=== PATIENT | female | born 1950 | race Caucasian/White ===

== ENCOUNTER 2022-11-07 18:20 | Inpatient (IN) | payer MEDICARE, MEDICAID ==
[2022-11-07] MEDS ORDERED: Sodium Chloride 0.9% 1,000 ML IV ONE (19:05)
[2022-11-07 19:32] LABS: ANION GAP 12.8 mmol/L (5-15); CHLORIDE,CL 99 mmol/L (98-107); SODIUM,NA 135 mmol/L (136-145)
[2022-11-07 19:36] LABS: ESTIMATED GFR 88 mL/min (>=60)
[2022-11-07] MEDS ORDERED: Iopamidol 755 Mg/ML 75 ML Bottle IVPUSH ONE (20:11)
[2022-11-07] MEDS ORDERED: Sodium Chloride 0.9% 50 ML IV SCH (20:15)
[2022-11-07] MEDS ORDERED: Alum Hydrox/Mag Hydrox/Simeth 30 ML, Lidocaine 2% 15 ML PO ONE ×2 (21:02)
[2022-11-07] MEDS ORDERED: Aspirin 81 MG Tab.Chew PO ONE (22:06)
[2022-11-07] MEDS ORDERED: LORazepam 0.5 MG Tab PO ONE (22:14)
[2022-11-07] MEDS ORDERED: Heparin Sodium 5,000 Units/ML Vial IVPUSH ONE (22:17)
[2022-11-07] MEDS ORDERED: Heparin Sodium/D5W 250 ML IV SCH (22:30)
[2022-11-07] MEDS ORDERED: Lidocaine 2% 100 MG/5 ML Syringe IVPUSH PRN (23:48)
[2022-11-07] MEDS ORDERED: EPINEPHrine 1:10,000 1 MG/10 ML Syringe IVPUSH PRN (23:48)
[2022-11-07] MEDS ORDERED: Atropine 0.1 MG/ML 10 ML Syringe IVPUSH PRN (23:48)
[2022-11-07] MEDS ORDERED: Nitroglycerin 0.4 MG Tab.SL SL PRN (23:48)
[2022-11-08] MEDS: LORazepam 2 MG/ML SDV IVPUSH PRN ×2 (01:02→13:59)
[2022-11-08] MEDS ORDERED: Sodium Chloride 0.9% 1,000 ML IV SCH (09:15)
[2022-11-08] MEDS ORDERED: Aspirin 81 MG Tab.Chew PO ONE (09:15)
[2022-11-08 10:10] VITALS: PULSE 69
[2022-11-08] MEDS ORDERED: Heparin Sodium 5,000 Units/ML Vial IVPUSH ONE (12:55)
[2022-11-08 15:20] VITALS: BP 106/79
== END 2022-11-08 14:15 | DRG 281 ==
LOC: KA.ED 18:20 → KA.MS 22:43
PROVIDERS: ADMIT Internal Medicine; ATTEND Internal Medicine
DX: I21.4 Non-ST elevation (NSTEMI) myocardial infarction (principal); Z68.1 Body mass index [BMI] 19.9 or less, adult; Z88.1 Allergy status to other antibiotic agents; Z88.8 Allergy status to other drugs, medicaments and biological substances; Z79.890 Hormone replacement therapy; Z79.899 Other long term (current) drug therapy; K21.9 Gastro-esophageal reflux disease without esophagitis; R63.6 Underweight
CPT/HCPCS: 36415; 74177; 80053; 83690; 84484; 85025; 85730; 93005; 93010; 96361; 96374; 99223; 99285-25; A9270-GY; J1644; J2060; J7030; Q9967

== ENCOUNTER 2024-03-28 16:59 | Emergency (ER) | payer MEDICARE, MEDICAID ==
[2024-03-28 17:21] LABS: BASOPHILS ABSOLUTE AUTO 0.04 10^3/uL (0.00-0.10); BASOPHILS PERCENT AUTO 0.6 % (0.0-1.0); EOSINOPHILS ABSOLUTE AUTO 0.17 10^3/uL (0.10-0.30); EOSINOPHILS PERCENT AUTO 2.4 % (1.0-3.0); HEMATOCRIT 36.9 % (37.0-47.0); HEMOGLOBIN 12.4 g/dL (12.0-16.0); IMMATURE GRAN ABSOLUTE AUTO 0.01 10^3/uL (0.00-0.50); IMMATURE GRAN PERCENT AUTO 0.1 % (0.0-5.0); LYMPHOCYTES ABSOLUTE AUTO 1.93 10^3/uL (1.00-4.00); LYMPHOCYTES PERCENT AUTO 27.4 % (20.0-40.0); MEAN CORPUSCULAR HEMOGLOBIN 32.5 pg (27.0-31.0); MEAN CORPUSCULAR HGB CONC 33.6 g/dL (32.0-36.0); MEAN CORPUSCULAR VOLUME 96.9 fL (82.0-92.0); MEAN PLATELET VOLUME 10.3 fL (7.4-10.4); MONOCYTES ABSOLUTE AUTO 0.44 10^3/uL (0.10-0.80); MONOCYTES PERCENT AUTO 6.2 % (2.0-8.0); NEUTROPHILS ABSOLUTE AUTO 4.46 10^3/uL (2.50-7.00); NEUTROPHILS PERCENT AUTO 63.3 % (50.0-70.0); PLATELET COUNT,PLT 212 10^3/uL (150-400); RED BLOOD CELL COUNT 3.81 10^6/uL (3.80-5.50); RED CELL DISTRIBUTION WIDTH 12.1 % (11.5-14.5); WHITE BLOOD CELL COUNT,WBC 7.05 10^3/uL (5.00-10.00)
[2024-03-28 17:39] LABS: ALANINE AMINOTRANSFERASE,ALT 19 U/L (14-63); ALBUMIN 3.28 g/dL (3.40-5.00); ALKALINE PHOSPHATASE 97 U/L (46-116); ANION GAP 13.2 mmol/L (5-15); ASPARTATE AMNIOTRANSFERASE,AST 21 U/L (15-37); BILIRUBIN TOTAL 0.2 mg/dL (0.2-1.0); BLOOD UREA NITROGEN,BUN 10 mg/dL (7-18); CALCIUM 8.8 mg/dL (8.7-10.3); CARBON DIOXIDE,CO2 29.5 mmol/L (21.0-32.0); CHLORIDE,CL 101 mmol/L (98-107); EST CRCL DRUG DOSING (CG) 48.25 mL/min; GLUCOSE RANDOM 99 mg/dL (70-140); POTASSIUM,K 3.7 mmol/L (3.5-5.1); PROTEIN TOTAL,TP 7.3 g/dL (6.4-8.2); SODIUM,NA 140 mmol/L (136-145)
[2024-03-28 17:40] LABS: C-REACTIVE PROTEIN < 0.50 mg/dL (0.00-0.50); ESTIMATED GFR 78 mL/min (>=60)
[2024-03-28 17:42] LABS: B-TYPE NATRIURETIC PEPTIDE,BNP 60 pg/mL (0-100)
[2024-03-28] MEDS: Iopamidol 755 Mg/ML 100 ML Bottle IV ONE (18:54)
[2024-03-28] MEDS: Sodium Chloride 0.9% 50 ML IV SCH (18:54)
== END 2024-03-28 19:52 | disposition home or self-care (01) ==
LOC: KA.ED 16:59
DX: H81.11 Benign paroxysmal vertigo, right ear (principal); I25.2 Old myocardial infarction; K21.9 Gastro-esophageal reflux disease without esophagitis; Z79.899 Other long term (current) drug therapy; Z86.19 Personal history of other infectious and parasitic diseases; Z88.1 Allergy status to other antibiotic agents; Z88.8 Allergy status to other drugs, medicaments and biological substances
CPT/HCPCS: 70496; 70498; 71045; 80053; 83880; 84484; 85025; 86140; 99285; J3490; Q9967; 93010; 99284

== ENCOUNTER 2025-01-08 09:24 | Day surgery (SDC) | payer MEDICARE, MEDICAID ==
[2025-01-08] MEDS ORDERED: Sodium Chloride 0.9% 10 ML Syringe FLUSH PRN (09:30)
[2025-01-08] MEDS: Lactated Ringers 1,000 ML IV SCH (09:40)
[2025-01-08] MEDS ORDERED: Midazolam 1 MG/ML 2 ML SDV ONE (10:22)
[2025-01-08] MEDS ORDERED: Propofol 200 MG/20 ML SDV ONE (10:22)
== END 2025-01-08 12:40 | disposition home or self-care (01) ==
LOC: KA.SDS 09:24
PROVIDERS: ATTEND Surgery
DX: K29.50 Unspecified chronic gastritis without bleeding (principal); K31.A0 Gastric intestinal metaplasia, unspecified; K21.9 Gastro-esophageal reflux disease without esophagitis
CPT/HCPCS: 00731; 88305; 99100; J2250; J2704; J7120